=== PATIENT | male | born 1990 | race Caucasian/White ===

== ENCOUNTER 2017-12-05 22:35 | Inpatient (IN) | payer BC, OTHER ==
[~2017-12-05] VITALS: Ht 182.9 cm; Wt 74.8 kg
--- NOTE | 2017-12-06 | NUR ---
PRE - ADMISSION Patient is a 27 year old male presented to [facility] for Alcohol (Vodka), Opioid(Heroin), Methamphetamine withdrawal. Patient is ambulatory with steady gate, alert and oriented x4, speech is clear. Patient is cooperative. Patient is intoxicated. The patient reports NKA. VS: T: 98.4, BP: 141/76, HR: 97, RA SPO2 98%. RR: 19. Patient denies any pain at this time. Patient instructed on unit protocol of vitals Q4H and COWS/CIWA assessments. Patient verbalized understanding and agreement. Patient also instructed on policy regarding destruction of any controlled substances/prescriptions brought to facility, and handling of all medications. Patient verbalized understanding and agreement. Will complete admission assessment when patient is brought up to unit.
[2017-12-06 00:11] VITALS: BP 141/76
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
[2017-12-06] MEDS ORDERED: THIAMINE HCL 200 MG/2 ML VIAL IM ONE (00:15)
[2017-12-06] MEDS ORDERED: LORAZEPAM 2 MG/1 ML VIAL IM PRN (00:15)
[2017-12-06] MEDS ORDERED: CLONIDINE HCL 0.1 MG TABLET PO PRN (00:15)
[2017-12-06] MEDS ORDERED: ONDANSETRON ODT 4 MG TAB.RAPDIS SL PRN (00:15)
[2017-12-06] MEDS ORDERED: DICYCLOMINE HCL 20 MG TABLET PO PRN (00:15)
[2017-12-06] MEDS ORDERED: HYDROXYZINE PAMOATE 25 MG CAPSULE PO PRN (00:15)
[2017-12-06] MEDS ORDERED: ONDANSETRON 4 MG/2 ML VIAL IM PRN (00:15)
[2017-12-06] MEDS ORDERED: diphenhydrAMINE 50 MG CAPSULE PO PRN (00:15)
[2017-12-06] MEDS ORDERED: MAG HYDROX/AL HYDROX/SIMETH 30 ML LIQUID UDC PO PRN (00:15)
[2017-12-06] MEDS ORDERED: MAGNESIUM HYDROXIDE 30 ML LIQUID UDC PO PRN (00:15)
[2017-12-06] MEDS ORDERED: LOPERAMIDE HCL 2 MG CAPSULE PO PRN ×2 (00:15)
[2017-12-06] MEDS ORDERED: METHOCARBAMOL 750 MG TABLET PO PRN (00:15)
[2017-12-06] MEDS ORDERED: LORAZEPAM 1 MG TABLET PO PRN ×2 (00:15)
[2017-12-06] MEDS ORDERED: MIRALAX 17 GM POWD.PACK PO PRN (00:15)
[2017-12-06] MEDS ORDERED: ACETAMINOPHEN 325 MG TABLET PO PRN (00:15)
[2017-12-06] MEDS ORDERED: IBUPROFEN 400 MG TABLET PO PRN (00:15)
[2017-12-06] MEDS ORDERED: BUPRENORPHINE HCL 2 MG TAB.SUBL SL PRN (00:15)
[2017-12-06] MEDS ORDERED: QUET100T PO (00:38)
[2017-12-06 00:52] LABS: *AMPHETAMINE, URINE POSITIVE (NEGATIVE); *BARBITURATE, URINE NEGATIVE (NEGATIVE); *CANNABINOID, URINE POSITIVE (NEGATIVE); *COCCAINE, URINE NEGATIVE (NEGATIVE); *OPIATE, URINE POSITIVE (NEGATIVE); *PHENCYCLIDINE SCREEN,URINE NEGATIVE (NEGATIVE)
[2017-12-06 01:35] LABS: BASOPHILS # (AUTO) 0.1 K/uL (0.0-8.0); BASOPHILS % (AUTO) 0.4 % (0.0-2.0); EOSINOPHILS # (AUTO) 0.2 K/uL (0.0-0.7); EOSINOPHILS % (AUTO) 1.7 % (0.0-7.0); HEMATOCRIT 42.3 % (36.7-47.1); HEMOGLOBIN 14.1 g/dL (12.5-16.3); LYMPHOCYTES # (AUTO) 3.1 K/uL (20.0-40.0); LYMPHOCYTES % (AUTO) 23.2 % (20.5-51.5); MEAN CORPUSCULAR HEMOGLOBIN 27.1 uug (23.8-33.4); MEAN CORPUSCULAR HGB CONC 33 g/dL (32.5-36.3); MEAN CORPUSCULAR VOLUME 81.2 fL (73.0-96.2); MONOCYTES % (AUTO) 7.7 % (0.0-11.0); NEUTROPHILS # (AUTO) 9.1 K/uL (1.8-8.9); PLATELET COUNT (AUTO) 312 K/uL (152-348); RED BLOOD CELL COUNT(AUTO) 5.21 MIL/uL (4.06-5.63); WHITE BLOOD COUNT (AUTO) 13.6 K/uL (3.6-10.2)
[2017-12-06 01:46] LABS: ALANINE AMINOTRANSFERASE 30 U/L (16-63); ALKALINE PHOSPHATASE 124 U/L (50-136); AMYLASE 34 U/L (25-115); ASPARTATE AMINOTRANSFERASE 29 U/L (15-37); BILIRUBIN,TOTAL 0.6 mg/dL (0.2-1.0); CARBON DIOXIDE 29 mmol/L (21-32); CHLORIDE 102 mmol/L (98-107); CREATININE 1.1 mg/dL (0.6-1.3); GLUCOSE 148 mg/dL (74-106); LIPASE 142 U/L (73-393); MAGNESIUM 2.4 mg/dL (1.8-2.4); POTASSIUM 3.9 mmol/L (3.5-5.1); TOTAL PROTEIN, SERUM 7.2 g/dL (6.4-8.2); UREA NITROGEN, BLOOD 17 mg/dL (7-18)
[2017-12-06 01:51] LABS: ETHANOL < 3 MG/DL (0-0)
[2017-12-06 01:56] LABS: THYROID STIMULATING HORMONE 2.001 mIU/mL (0.358-3.740)
--- NOTE | 2017-12-06 02:14 | NUR ---
PRN BENADRYL 50 MG 1 CAPSULE PO ADMINISTRATION. PRN Benadryl 50 mg PO administrated for insomnia at 0214 with full glass of water, as ordered. Patient tolerated well. Safe and calm environment with minimized noises was provided. All needs met. Safety measures in the place: Call light within reach, bed locked in the lowest position, and padded rails up x2. Will continue to monitor closely.
--- NOTE | 2017-12-06 03:14 | NUR ---
PRN BENADRYL PO RE-ASSESSMENT Patient is sleeping. RR 14. Respirations even and unlabored. PRN Benadryl 50 mg PO administrated for insomnia at 0214 was effective. Safe and calm environment with minimized noises was provided. All needs met. Safety measures in the place: Call light within reach, bed locked in the lowest position, and padded rails up x2. Will continue to monitor closely.
[2017-12-06 04:00] VITALS: BP 139/75
--- NOTE | 2017-12-06 06:55 | NUR ---
END OF SHIFT NOTE: Endorsed patient is a 27 year old male admitted today, 12/06/2017 at 0011 for Benzodiazepines (Valium), Alcohol (Vodka), Opioid (Heroin via IV), and Methamphetamine (via IV) withdrawal. The patient noted intoxicated. The patient is on PRN Medications. The patient tolerated well. He is alert and oriented x4, with clear, soft speech. The patient ambulatory with steady gate. Patient noted with anxious affect, and irritable mood. PRN Benadryl 50 mg PO administrated for insomnia at 2010, and was effective. The patient remains compliant with treatment, medications and diet regime. Encouraged to increase oral fluids as tolerated. Encourage to attended groups activities. Calm and safety environment with minimized noises was provided. Patient slept 1 hour, intake 1,500 ml, voided x2. All needs met. Safe and calm environment with minimized noises was provided. Safety measures in the place: Call light within reach, bed in the lowest position and locked, padded rails up x2. Patient endorsed to day shift nurse.
[2017-12-06 08:00] VITALS: BP 123/77
--- NOTE | 2017-12-06 08:05 | NUR ---
START OF SHIFT: Received Pt laying in bed with eyes closed. He is easily aroused. Respirations even and unlabored. He states came in late and needs sleep. Will allow Pt to rest a while before medication administration. Call rodriguez in reach. Bed locked and low. Sz Precautions noted. Will continue to monitor.
[2017-12-06] MEDS: MULTIVITAMINS,THERAPEUTIC TABLET PO SCH (09:00)
[2017-12-06] MEDS: FOLIC ACID 1 MG TABLET PO SCH (09:00)
[2017-12-06] MEDS: THIAMINE HCL 100 MG TABLET PO SCH (09:00)
--- NOTE | 2017-12-06 09:35 | NUR ---
Pt is laying in bed with eyes closed VS WNL. Respirations even and unlabored. He is refusing 0900 vitamins and states he really needs to sleep. Encouraged Pt to notify nursing when he feels s/s of w/d. COWS and CIWA deferred. PRNS available when Pt needs them. Will continue to monitor and offer support.
--- NOTE | 2017-12-06 11:04 | NUR ---
Endorsed Pt to staff nurse. All pertinent information discussed.
--- NOTE | 2017-12-06 11:43 | NUR ---
Clarification of Drug use Spoke to pt. at bedside regarding drugs abuse history. Pt. states he was in a [facility] named [facility] 2 days before being admitted here at [facility]. Pt. states that he left the rehab 2 days ago and began injecting methamphetamines and heroin. During his stay pt. states he was prescribed and took both subutex and valium to manage his withdrawal symptoms. Drug Use Heroin IV 1gram for the past 2 days. Methamphetamines IV 1gram for the past 2 days. ETOH (Vodka) 1 pint 4 times a week, but states he has not consumed any alcohol since he was admitted to [facility]. Pt. was in rehab 4 weeks prior to being admitted to [facility]. He left that rehab however and began using IV Methamphetamines and IV Heroin daily until being admitted to [facility]. At this time pt. is laying in bed with eyes closed answering questions but getting increasingly irritable. Pt. is denying anxiety, restlessness, body aches, pain, congestion, chills, visual and auditory disturbance. Pt. states "Can you please just look at my chart I'm tired please just let me sleep."
[2017-12-06 12:00] VITALS: BP 133/79
--- NOTE | 2017-12-06 12:00 | NUR ---
COW's/CIWA Assessment COW's and CIWA deferred at this time. Pt. in bed asleep. V/S WNL and no signs or symptoms of withdrawal present.
[2017-12-06] MEDS ORDERED: QUETIAPINE FUMARATE 100 MG TABLET PO PRN (14:45)
[2017-12-06 16:00] VITALS: BP 120/71
--- NOTE | 2017-12-06 16:00 | NUR ---
COW's/CIWA Assessment COW's and CIWA deferred at this time. Pt. in bed asleep. V/S WNL and no signs or symptoms of withdrawal present. Will continue to monitor for safety.
--- NOTE | 2017-12-06 19:15 | NUR ---
End of Shift Note Pt. was admitted for the medically managed withdrawal from benzodiazepines and opiates. Pt. was placed on PRN medication to managed withdrawal symptoms. Pt. remained in his room asleep for the majority of the shift not displaying any withdrawal symptoms. Pt.'s V/S remained WNL throughout shift. Last COW's/CIWA deferred at 1600. Pt. is set to be discharged tomorrow. Safety measures in place. Pt.'s care and behavior endorse to oncoming shift.
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
[2017-12-06 20:00] VITALS: BP 107/60
--- NOTE | 2017-12-06 20:00 | NUR ---
COWS/CIWA ASSESSMENT: THE PATIENT HAS NO S/S OF WITHDRAWAL AT THIS TIME. VS WNL.
[2017-12-07] VITALS: BP 115/64
--- NOTE | 2017-12-07 | NUR ---
COWS/CIWA ASSESSMENT: THE PATIENT HAS NO S/S OF WITHDRAWAL AT THIS TIME. VS WNL.
[2017-12-07 04:00] VITALS: BP 115/64
--- NOTE | 2017-12-07 04:00 | NUR ---
COWS/CIWA ASSESSMENT: No Withdrawal S/S noted. VS WNL. Safe and calm environment with minimized noises was provided. Safety measures in place: Call light within reach, bed is locked in lowest position, and padded bed rails up bilaterally. Will continue to monitor closely.
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
--- NOTE | 2017-12-07 07:30 | NUR ---
START OF SHIFT Pt 27 y/o male admitted for bzo, etoh, opioid , and methamphetamine withdrawal. Pt received in room. Pt alert and oriented to name, place, and time. Perrla. Skin warm and dry to touch. Respirations even and unlabored. Pt anxious this morning. Pt appears disheveled this morning. Clothes scattered throughout the room. Encouraged to maintain hygiene. It was reported that pt slept for 7 hours last night. Pt is scheduled to be discharged today. Pt was on prn ativan per MD order and prn subutex per MD order. Last ciwa and cows deferred @ 0400. Bed on lowest position with side rails x2 up for safety. Call light within reach.
[2017-12-07 08:00] VITALS: BP 120/62
--- NOTE | 2017-12-07 08:00 | NUR ---
COWS/ CIWA ASSESSMENT Pt with ciwa=3 and cows=3. Pt anxious an irritable this morning. Pt restless, not able to lay still. Pressured speech noted.
[2017-12-07 08:07] LABS: HEPATITIS B SURFACE AG Negative (Negative)
[2017-12-07] MEDS: THIAMINE HCL 100 MG TABLET PO SCH (08:45)
[2017-12-07] MEDS: MULTIVITAMINS,THERAPEUTIC TABLET PO SCH (08:45)
[2017-12-07] MEDS: FOLIC ACID 1 MG TABLET PO SCH (08:45)
[2017-12-07] MEDS ORDERED: TUBERCULIN,PURIF.PROT.DERIV. 5 TU/0.1 ML TEST ID ONE (09:00)
--- NOTE | 2017-12-07 12:00 | NUR ---
CIWA/ COWS ASSESSMENT cows=3 ciwa=3. Pt isolative to room. Pt anxious about discharge and irritable.
[2017-12-07 12:36] VITALS: BP 128/60
--- NOTE | 2017-12-07 14:15 | NUR ---
DISCHARGE Pt 27 y/o male admitted for bzo, etoh, opioid, adn methamphetamine withdrawal. Pt alert and oriented to name, place, and time. Perrla. Skin warm dry to touch. Respirations even and unlabored. VS wnl. Pt excited about discharge. Pt discharged to [facility] via private transport. No belongings in cassette and in cabinet noted. Pt belongings and discharge papers packed in pt bag. Pt denies any SI/ HI. No distress noted.
== END 2017-12-07 14:15 | disposition other institution (70) | DRG 895 ==
LOC: SRC 23:23
PROVIDERS: ADMIT Family Medicine Addiction Medicine; ATTEND Family Medicine Addiction Medicine
PROC: HZ2ZZZZ Detoxification Services for Substance Abuse Treatment (ICD-10-PCS; principal; 2017-12-05)
PROC: HZ51ZZZ Individual Psychotherapy for Substance Abuse Treatment, Behavioral (ICD-10-PCS; 2017-12-07)
DX: F13.220 Sedative, hypnotic or anxiolytic dependence with intoxication, uncomplicated (principal); Z59.0 Homelessness; F17.210 Nicotine dependence, cigarettes, uncomplicated; F11.929 Opioid use, unspecified with intoxication, unspecified; F15.129 Other stimulant abuse with intoxication, unspecified
CPT/HCPCS: 36415; 80307; 80324; 80346; 80349; 80361; 83690; 83735; 84443; 85025; 86592; 86705; 86803; 87340; 87806; A4663; G0480; Q0163